=== PATIENT | female | born 1950 | race Caucasian/White ===

== ENCOUNTER → 2016-05-27 | Outpatient (CLI) | payer MEDICARE, BC ==
[2016-05-27 09:31] LABS: ABSOLUTE LYMPHOCYTES (AUTO) 1.8 10^3/uL (0.5-4.7); ABSOLUTE MONOCYTES (AUTO) 0.6 10^3/uL (0.1-1.4); ABSOLUTE NEUT (AUTO) 4.7 10^3/uL (1.7-8.2); BASOPHILS % (AUTO) 0.4 % (0-2); EOSINOPHILS % (AUTO) 0.4 % (0-6); HEMATOCRIT 41.3 % (36.0-47.0); HEMOGLOBIN 13.8 g/dL (12.0-15.5); HGB HCT DIFFERENCE 0.1; LYMPHOCYTES % (AUTO) 25.1 % (13-45); MEAN CORPUSCULAR HEMOGLOBIN 30.1 pg (27.0-33.4); MEAN CORPUSCULAR HGB CONC 33.4 g/dL (32.0-36.0); MEAN CORPUSCULAR VOLUME 90 fl (80-97); RED BLOOD COUNT 4.58 10^6/uL (3.72-5.28); RED CELL DISTRIBUTION WIDTH 13.6 % (11.5-14.0); SEGMENTED NEUTROPHILS % (AUTO) 66.1 % (42-78); WHITE BLOOD COUNT 7.1 10^3/uL (4.0-10.5)
[2016-05-27 09:55] LABS: ALANINE AMINOTRANSFERASE 22 U/L (9-52); ALBUMIN 4.6 g/dL (3.5-5.0); ALKALINE PHOSPHATASE 105 U/L (38-126); ANION GAP 11 (5-19); ASPARTATE AMINO TRANSFERASE 15 U/L (14-36); BILIRUBIN,TOTAL 0.7 mg/dL (0.2-1.3); BLOOD UREA NITROGEN 20 mg/dL (7-20); CALCIUM 10.7 mg/dL (8.4-10.2); CARBON DIOXIDE 29 mmol/L (22-30); CHLORIDE 104 mmol/L (98-107); CHOLESTEROL 170.95 mg/dL (0-200); CREATININE RESULT 0.78 mg/dL (0.52-1.25); Direct HDL 59 mg/dL (>40); GLUCOSE 99 mg/dL (75-110); POTASSIUM 4.7 mmol/L (3.6-5.0); SODIUM 144.1 mmol/L (137-145); TOTAL PROTEIN 7.3 g/dL (6.3-8.2); TRIGLYCERIDES 90 mg/dL (<150)
[2016-05-27 10:06] LABS: DIRECT LDL 95 mg/dL (<100)
[2016-05-27 10:12] LABS: FREE T3 3.68 pg/mL (2.77-5.27)
[2016-05-27 10:25] LABS: THYROID STIMULATING HORMONE 0.38 uIU/mL (0.47-4.68)
== END ==
LOC: OD 08:28
PROVIDERS: ATTEND Internal Medicine
DX: I10 Essential (primary) hypertension (principal); R53.83 Other fatigue; E78.00 Pure hypercholesterolemia, unspecified; Z79.899 Other long term (current) drug therapy
CPT/HCPCS: 36415; 80053; 80061; 84439; 84443; 84481; 85025

== ENCOUNTER → 2016-06-21 | Outpatient (CLI) | payer MEDICARE, BC ==
[2016-06-21 15:20] LABS: FOLATE 17.8 ng/mL (>2.76)
== END ==
LOC: OD 12:48
PROVIDERS: ATTEND Internal Medicine
DX: R53.83 Other fatigue (principal)
CPT/HCPCS: 36415; 82607; 82746

== ENCOUNTER 2020-04-13 10:06 | Day surgery (SDC) | payer MEDICARE, BC ==
[2020-04-08 10:04] LABS: HEMATOCRIT 38.3 % (36.0-47.0); HEMOGLOBIN 12.9 g/dL (12.0-15.5); MEAN CORPUSCULAR HEMOGLOBIN 30.7 pg (27.0-33.4); MEAN CORPUSCULAR HGB CONC 33.7 g/dL (32.0-36.0); MEAN CORPUSCULAR VOLUME 91 fl (80-97); PLATELET COUNT 251 10^3/uL (150-450); RED BLOOD COUNT 4.21 10^6/uL (3.72-5.28); RED CELL DISTRIBUTION WIDTH 14.1 % (11.5-14.0); WHITE BLOOD COUNT 5.8 10^3/uL (4.0-10.5)
[2020-04-08 10:09] LABS: APPEARANCE,URINE CLEAR; BILIRUBIN,URINE NEGATIVE (NEGATIVE); COLOR,URINE STRAW; GLUCOSE, URINE NEGATIVE (NEGATIVE); KETONES,URINE NEGATIVE (NEGATIVE); LEUKOCYTE ESTERASE,URINE NEGATIVE (NEGATIVE); NITRITE,URINE NEGATIVE (NEGATIVE); PROTEIN,URINE NEGATIVE (NEGATIVE); URINE SPECIFIC GRAVITY 1.009; UROBILINOGEN,URINE NEGATIVE mg/dL (<2.0)
[2020-04-08 10:24] LABS: ANION GAP 6 (5-19); BLOOD UREA NITROGEN 27 mg/dL (7-20); CALCIUM 9.9 mg/dL (8.4-10.2); CARBON DIOXIDE 28 mmol/L (22-30); CHLORIDE 105 mmol/L (98-107); GLUCOSE 100 mg/dL (75-110); POTASSIUM 4.5 mmol/L (3.6-5.0)
--- NOTE | 2020-04-08 15:20 | EKG REPORT ---
SEVERITY:- ABNORMAL ECG - SINUS BRADYCARDIA LEFT BUNDLE BRANCH BLOCK : Confirmed by: Amaury Prince MD 08-Apr-2020 15:19:45
[~2020-04-13 10:06] MED LIST: CEFAZOLIN 2 GM/D5W RTU 2 GM/50 ML RTUPB IV PRN; DEXAMETHASONE SOD PHOSPHATE INJ 4 MG/1 ML VIAL ONE; FENTANYL CITRATE INJ/PF 100 MCG/2 ML AMPUL ONE; GLYCOPYRROLATE 1 MG/5 ML VIAL ONE; LACTATED RINGERS 1000 ML IV PRN; LIDOCAINE 0.5% INJ-PF (5 MG/ML) 50 ML SDV SUBCUT PRN; MIDAZOLAM 2 MG/2 ML INJ ONE; ONDANSETRON HCL INJ/PF 4 MG/2 ML SDV ONE; PROPOFOL INJ 200 MG/20 ML VIAL IV ONE
[2020-04-13] MEDS ORDERED: CEFAZOLIN 2 GM/D5W RTU 2 GM/50 ML RTUPB IV ONE (10:29)
[2020-04-13] MEDS ORDERED: LIDOCAINE 1% INJ-PF (10 MG/ML) 30 ML SDV ONE (11:32)
[2020-04-13] MEDS ORDERED: KETOROLAC TROMETHAMINE INJ/PF 30 MG/1 ML SDV ONE (11:32)
[2020-04-13] MEDS ORDERED: EPINEPHRINE INJ/PF 1 MG/1 ML AMPULE ONE (11:32)
[2020-04-13] MEDS ORDERED: OXYCODONE-ACETAMINOPHEN 5-325 MG TABLET PO PRN (11:36)
[2020-04-13] MEDS ORDERED: RINGERS SOLUTION,LACTATED 1,000 ML IV PRN (11:36)
[2020-04-13] MEDS ORDERED: KETOROLAC TROMETHAMINE 60 MG/2 ML SDV IM PRN (11:36)
[2020-04-13] MEDS ORDERED: ONDANSETRON HCL INJ/PF 4 MG/2 ML SDV IV PRN ×2 (11:36→12:20)
[2020-04-13] MEDS ORDERED: MORPHINE SULFATE 10 MG/ML INJ IV PRN ×2 (11:36→12:20)
[2020-04-13] MEDS ORDERED: TRIAMCINOLONE ACETONIDE INJ 40 MG/1 ML VIAL ONE (11:59)
[2020-04-13] MEDS: BUPIVACAINE HCL 0.5 % INJ/PF 30 ML SDV ONE ×2 (12:10→12:13)
[2020-04-13] MEDS ORDERED: MEPERIDINE HCL/PF INJ 25 MG/1 ML DISP.SYRIN IV PRN (12:20)
[2020-04-13] MEDS ORDERED: DIPHENHYDRAMINE HCL 50 MG/ML VIAL IV PRN (12:20)
[2020-04-13] MEDS ORDERED: FENTANYL CITRATE INJ/PF 100 MCG/2 ML AMPUL IV PRN ×3 (12:20)
[2020-04-13] MEDS ORDERED: PROMETHAZINE HCL INJ 25 MG/1 ML VIAL IV PRN ×2 (12:20)
--- NOTE | 2020-04-13 12:54 | Discharge Summary ---
Discharge Summary (SDC) - Discharge Final Diagnosis: Left knee medial meniscus tear, complex. Grade 1-2 degenerative changes in the medial compartment. Medial plica. Date of Surgery: 04/13/20 Discharge Date: 04/13/20 Condition: Stable Treatment or Instructions: Full details of postoperative instructions have been provided to the patient in the clinic. Additionally they should maintain their bandage in place or change as needed for any saturation. They are to avoid getting the wound wet or submerging in a bath. No showers with the wound unprotected until cleared by me in the clinic. Patient is allowed to ambulate as tolerated however crutches have been encouraged as she returns to function safely. Prescriptions for pain medication of been given preoperatively. Follow-up with Dr. Harman Schofield, orthopedic surgeon at [facility] for surgery, in 10 days. Call for an appointment. . [address], [place] [address] Referrals: JARRED GIL MD [Primary Care Provider] - Discharge Diet: As Tolerated Respiratory Treatments at Home: Deep Breathing/Coughing Discharge Activity: Activity As Tolerated, No Driving, Keep Legs Elevated, No tub bath, Walk Frequently Adaptive Devices on Discharge: Axillary Crutches Report the Following to Your Physician Immediately: Shortness of Breath, Fever over 101 Degrees, Unusual Bleeding, Drainage-Yellow
--- NOTE | 2020-04-13 13:02 | Operative Report ---
Operative Report DATE OF SURGERY: 04/13/20 PREOPERATIVE DIAGNOSIS: Left knee medial meniscus tear POSTOPERATIVE DIAGNOSIS: Left knee complex medial meniscus tear, grade 1-2 medial compartment changes both medial femoral condyle and tibial plateau, medial plica OPERATION: Left knee arthroscopy, partial medial meniscectomy, medial plica resection. SURGEON: RUFUS VILLALTA JR ANESTHESIA: GA COMPLICATIONS: None ESTIMATED BLOOD LOSS: 5 cc PROCEDURE: DESCRIPTION OF THE PROCEDURE: The patient was placed supine on the operating room table. After the patient was placed under general anesthesia, and appropriate timeout was performed. The patient was prepped and draped in the usual sterile fashion for arthroscopic surgery. The left lower extremity was then exsanguinated with the use of an Esmarch bandage and the tourniquet was inflated to 250 mmHg. The operation commenced with creation of the lateral portal with an 11 blade. The arthroscope was directed into the suprapatellar pouch with the knee held in extension. A systematic examination of the left knee was begun arthroscopically. The patellofemoral articulation was visualized. The medial gutter was entered. No loose bodies were identified. The medial compartment was then entered and the medial portal was established under direct visualization with a spinal needle. The arthroscopic probe was used to inspect the contents of the medial compartment. The meniscus was inspected and a complex tear from mid coronal through the to the posterior meniscus was encountered. This was resected with a combination of a biter and a shaver. The cartilage was inspected and found to be grade 1-2 long a small portion of the weightbearing surface of the femur, along with grade 1-2 changes on the posterior weightbearing portion of the tibial plateau. The notch was then visualized. The anterior cruciate ligament and PCL were found to be intact. The arthroscope was directed into the lateral compartment. Notch fat pad and ligamentum mucosum tissue were resected with a suction shaver in order to better visualize the lateral compartment. The meniscus was inspected with a probe and found to be stable. A subsequently the lateral femoral condyle and the lateral tibial plateau were inspected with a probe. This found grade 0 the cartilage throughout the lateral compartment with minimal softening. The patellofemoral compartment was revisited and a medial plica was appreciated. This was resected with a suction shaver. After this I found the patellofemoral compartment to be clear of any impinging synovium or fat pad with grade 0 cartilage along most of the patella and femoral trochlea aside from some grade 1 changes in the patella. A mixture of Marcaine, lidocaine and toradol was injected into the right knee. The instruments were then removed. The portals were closed with 3-0 nylon and Xeroform and a light compressive dressing was applied. The tourniquet was def lated. The patient was recovered from his anesthetic and was returned to the recovery room in stable condition. There were no complications.
[2020-04-13] MEDS ORDERED: FENTANYL CITRATE INJ/PF 100 MCG/2 ML AMPUL ONE (13:03)
[2020-04-13 16:33] VITALS: BP 125/73
== END 2020-04-13 14:40 | disposition home or self-care (01) ==
LOC: OROUT 10:06
PROVIDERS: ATTEND Orthopaedic Surgery
DX: S83.232A Complex tear of medial meniscus, current injury, left knee, initial encounter (principal); X58.XXXA Exposure to other specified factors, initial encounter; M67.52 Plica syndrome, left knee; M17.12 Unilateral primary osteoarthritis, left knee; F41.9 Anxiety disorder, unspecified; E78.5 Hyperlipidemia, unspecified; K21.9 Gastro-esophageal reflux disease without esophagitis; M85.80 Other specified disorders of bone density and structure, unspecified site; Z79.899 Other long term (current) drug therapy; Z20.828 Contact with and (suspected) exposure to other viral communicable diseases; Z79.82 Long term (current) use of aspirin; Z96.642 Presence of left artificial hip joint
CPT/HCPCS: 93005; 36415; 85027; 80048; 81001; 93010; 20610; 29881; U0003; J2250; J3490 ×2; J1100; J0171; J3010; J1885; J2405; J3301; J2704; J0690; C9803; 87635